=== PATIENT | female | born 1960 | race Caucasian/White ===

== ENCOUNTER 2023-03-16 21:10 | Emergency (ER) | payer OTHER ==
[2023-03-16 21:26] VITALS: BMI 31.1
[2023-03-16] MEDS ORDERED: ACETAMINOPHEN 325 MG TABLET (FP) PO ONE (22:03)
[2023-03-16] MEDS ORDERED: ACETAMINOPHEN 325 MG TABLET (FP) ONE (22:05)
[2023-03-16] MEDS ORDERED: guaiFENesin/CODEINE 10 ML UNIT-DOSE CUPS PO ONE (22:27)
[2023-03-16] MEDS ORDERED: guaiFENesin/CODEINE 10 ML UNIT-DOSE CUPS ONE (22:29)
[2023-03-17 00:30] LABS: BASO % 0.2 % (0-2.0); EOS % 0.3 % (0-4.5); HEMATOCRIT 39.3 % (32.4-45.2); LYMPH % 14.7 % (8-40); MCH 28.5 pg (25.7-33.7); MCHC 33.2 g/dl (32.0-36.0); MEAN CELL VOLUME 85.9 fl (80-96); MEAN PLT VOLUME 7.5 fl (7.5-11.1); MONO % 9.6 % (3.8-10.2); NEUT % 75.2 % (42.8-82.8); PLATELET COUNT 279 10^3/uL (134-434); RBC 4.58 M/mm3 (3.60-5.2); RDW 13.4 % (11.6-15.6); WHITE BLOOD COUNT 8.3 K/mm3 (4.0-10.0)
[2023-03-17 00:40] LABS: CALCIUM 8.2 mg/dL (8.5-10.1)
[2023-03-17 00:41] LABS: ALBUMIN 3.4 g/dl (3.4-5.0); BLOOD UREA NITROGEN 5.8 mg/dL (7-18)
[2023-03-17 00:44] LABS: CREATININE 0.6 mg/dL (0.55-1.3)
[2023-03-17 00:46] LABS: BILIRUBIN,TOTAL 0.2 mg/dL (0.2-1)
[2023-03-17 01:13] VITALS: BP 130/70; PULSE 107; RESP 18; TEMP 99
== END 2023-03-17 01:50 | disposition home or self-care (01) ==
LOC: JER 21:10 → JERFT 21:10 → JER 03-17 01:50
DX: R51.9 Headache, unspecified (principal); R50.9 Fever, unspecified; R05.9 Cough, unspecified; M54.9 Dorsalgia, unspecified; M79.10 Myalgia, unspecified site; J02.9 Acute pharyngitis, unspecified; R09.81 Nasal congestion; R11.2 Nausea with vomiting, unspecified; U07.1 COVID-19
CPT/HCPCS: 0241U-QW; 36415; 71046-TC-FY; 80053; 85025; 99284-25

== ENCOUNTER 2023-05-29 10:38 | Emergency (ER) | payer OTHER ==
[2023-05-29 10:45] VITALS: BMI 34.2
[2023-05-29 12:51] LABS: BASO % 0.3 % (0-2.0); EOS % 4.2 % (0-4.5); HEMATOCRIT 40.9 % (32.4-45.2); HEMOGLOBIN 13.9 GM/dL (10.7-15.3); LYMPH % 29.7 % (8-40); MCH 29.2 pg (25.7-33.7); MEAN CELL VOLUME 85.9 fl (80-96); MEAN PLT VOLUME 6.7 fl (7.5-11.1); MONO % 7.3 % (3.8-10.2); NEUT % 58.5 % (42.8-82.8); PLATELET COUNT 350 10^3/uL (134-434); RBC 4.76 M/mm3 (3.60-5.2); RDW 14.4 % (11.6-15.6); WHITE BLOOD COUNT 10.9 K/mm3 (4.0-10.0)
[2023-05-29 13:21] LABS: POTASSIUM 4.4 mmol/L (3.5-5.1)
[2023-05-29 13:23] LABS: ALBUMIN 3.4 g/dl (3.4-5.0); BLOOD UREA NITROGEN 8.3 mg/dL (7-18); CALCIUM 8.6 mg/dL (8.5-10.1)
[2023-05-29 13:26] LABS: CREATININE 0.5 mg/dL (0.55-1.3)
[2023-05-29 13:28] LABS: BILIRUBIN,TOTAL 0.3 mg/dL (0.2-1); TOT PROT 7.2 g/dl (6.4-8.2)
[2023-05-29] MEDS ORDERED: ALBUTEROL SO4 HFA INHALER IH ONE ×2 (13:36→13:41)
[2023-05-29 14:34] VITALS: BP 120/59; PULSE 94; RESP 20; TEMP 98.3
== END 2023-05-29 14:36 | disposition home or self-care (01) ==
LOC: JER 10:38
PROC: 3E0F7GC Introduction of Other Therapeutic Substance into Respiratory Tract, Via Natural or Artificial Opening (ICD-10-PCS; principal; 2023-05-29)
DX: R05.9 Cough, unspecified (principal); R50.9 Fever, unspecified; J40 Bronchitis, not specified as acute or chronic; Z20.822 Contact with and (suspected) exposure to COVID-19
CPT/HCPCS: 0241U-QW; 36415; 71045-TC-FY; 80053; 84484; 85025; 93005; 93010; 99285-25

== ENCOUNTER 2025-06-03 11:13 | Emergency (ER) | payer MEDICARE, OTHER ==
[2025-06-03 11:23] VITALS: RESP 20; BMI 32.0
[2025-06-03 13:23] LABS: ABSOLUTE IMMATURE GRANULOCYTES 0.03 x10^3/uL (0.0-0.031); BASOPHILS # 0.04 x10^3/uL (0.01-0.08); EOSINOPHIL % 2.6 % (0.7-5.8); EOSINOPHILS # 0.21 x10^3/uL (0.04-0.36); MCHC 31.9 g/dl (32.2-35.5); MEAN CELL VOLUME 86.7 fl (79.4-94.8); MEAN PLT VOLUME 8.3 fl (9.4-12.3); MONOCYTE # 0.81 x10^3/uL (0.24-0.86); MONOCYTE % 9.9 % (4.7-12.5); RDW 13.2 % (12.4-16.4)
[2025-06-03 13:52] LABS: GLUCOSE,RANDOM 128.0 mg/dL (74-106); TOT PROT 7.3 g/dl (6.4-8.2)
[2025-06-03 13:53] LABS: CO2 28.0 mmol/L (21-32)
[2025-06-03 13:55] LABS: ALK PHOS 76.0 U/L (40-150)
[2025-06-03 13:57] LABS: SGOT/AST 25.0 U/L (5-34); SGPT/ALT 20.0 U/L (0-55)
[2025-06-03 13:58] LABS: CREATININE 0.52 mg/dL (0.55-1.3)
[2025-06-03 14:06] LABS: N-TERMINAL BNP 88.3 pg/mL (0-299.9)
[2025-06-03 14:22] LABS: HIV INTERPRETATION NEGATIVE (NEGATIVE)
[2025-06-03 17:42] VITALS: BP 133/66; PULSE 98; TEMP 97.7
[2025-06-03 17:43] LABS: URINE APPEARANCE Clear; URINE BILIRUBIN Negative (NEGATIVE); URINE COLOR Yellow; URINE GLUCOSE (UA) Negative (NEGATIVE); URINE KETONE Negative (NEGATIVE); URINE LEUK ESTERASE Negative (NEGATIVE); URINE NITRITE Negative (NEGATIVE); URINE PROTEIN Negative (NEGATIVE); URINE UROBILINOGEN 0.2 mg/dL (0.2-1.0)
[2025-06-06 09:53] LABS: HCV DIAGNOSTIC IN-HOUSE W/RFLX NON-REACTIVE (NONREACTIVE)
== END 2025-06-03 18:26 | disposition home or self-care (01) ==
LOC: JER 11:13
DX: R60.0 Localized edema (principal); R05.9 Cough, unspecified; R14.0 Abdominal distension (gaseous); K62.5 Hemorrhage of anus and rectum; K64.4 Residual hemorrhoidal skin tags; M54.9 Dorsalgia, unspecified
CPT/HCPCS: 36415; 71046-TC-FY; 80053; 81003; 82272; 83880; 84484; 85025; 86803; 87086; 87389; 87637-QW; 93005; 93010; 93970-TC; 99285-25